=== PATIENT | male | born 1990 | race American Indian/Alaskan Native ===

== ENCOUNTER 2017-09-25 08:10 | Day surgery (SDC) | payer BC, OTHER ==
[~2017-09-25 08:10] MED LIST: Acetaminophen/HYDROcodone 325-10 MG Tab PO PRN; Ketorolac 10 MG Tab PO PRN; Lactated Ringers 1,000 ML IV SCH; Lidocaine 2% 5 ML SDV ONE; Midazolam 1 MG/ML 2 ML SDV ONE; Ondansetron 4 MG/2 ML SDV ONE; Propofol 200 MG/20 ML SDV ONE; ceFAZolin 2 GM in Premix Bag 1 BAG IV SCH; fentaNYL 250 MCG/5 ML SDV ONE
[2017-09-25] MEDS ORDERED: Acetaminophen 1,000 MG in Premix Bag 1 BAG IV SCH (10:00)
--- NOTE | 2017-09-25 10:18 | PCM.PREANE ---
Preanesthetic Assessment - Anesthesia/Transfusion/Family Hx Anesthesia History: Prior Anesthesia Without Reaction Family History of Anesthesia Reaction: No Transfusion History: No Prior Transfusion(s) - Review of Systems General: No Symptoms Pulmonary: No Symptoms Cardiovascular: No Symptoms Gastrointestinal: No Symptoms Neurological: No Symptoms Other: Reports: None - Physical Assessment NPO Status Date: 09/24/17 Height: 1.7 m Weight: 99.79 kg ASA Class: 1 Mental Status: Alert & Oriented x3 Airway Class: Mallampati = 1 Dentition: Reports: Normal Dentition ROM/Head Extension: Full Lungs: Clear to Auscultation, Normal Respiratory Effort Cardiovascular: Regular Rate, Regular Rhythm - Allergies Allergies/Adverse Reactions: Allergies Allergy/AdvReac Type Severity Reaction Status Date / Time No Known Allergies Allergy Verified 09/20/17 10:29 - Acknowledgements Anesthesia Type Planned: General Anesthesia Pt an Appropriate Candidate for the Planned Anesthesia: Yes Alternatives and Risks of Anesthesia Discussed w Pt/Guardian: Yes Pt/Guardian Understands and Agrees with Anesthesia Plan: Yes PreAnesthesia Questionnaire HEENT History: Reports: Other (See Below) Other HEENT History: wears glasses Neurological History: Reports: Concussion, Migraines, Seizure Other Neuro History: "had seizure following concussion" Endocrine/Metabolic History: Reports: Obesity/BMI 30+ - Past Surgical History Head Surgeries/Procedures: Reports: None Musculoskeletal Surgical History: Reports: Other (See Below) Other Musculoskeletal Surgeries/Procedures:: hx foot surgery - SUBSTANCE USE Smoking Status *Q: Never Smoker Recreational Drug Use History: No - HOME MEDS Home Medications: Home Meds Ibuprofen 800 mg PO ASDIRECTED PRN 09/20/17 [History] - CURRENT (IN HOUSE) MEDS Current Meds: Current Medications Hydrocodone Bitart/Acetaminophen ([place] 325-10 Mg) 1 - 2 tab PO Q4H PRN PRN Reason: Pain Fentanyl (Sublimaze) 50 mcg IVPUSH .Q5MIN PRN PRN Reason: Pain Cefazolin Sodium/Dextrose 2 gm (/ Premix) 50 mls @ 100 mls/hr IV ONCALL ROSIE Lactated Ringer's (Ringers, Lactated) 1,000 mls @ 100 mls/hr IV ASDIRECTED [facility] Last Admin: 09/25/17 09:51 Dose: 100 mls/hr Acetaminophen 1,000 mg/ Premix 100 mls @ 400 mls/hr IV .ONETIME ROSIE Last Admin: 09/25/17 09:50 Dose: 400 mls/hr Ketorolac Tromethamine (Toradol) 10 mg PO Q6H PRN PRN Reason: Pain Stop: 09/30/17 08:01 Discontinued Medications Fentanyl (Sublimaze) Confirm Administered Dose 250 mcg .ROUTE .STK-MED ONE Stop: 09/25/17 07:21 Lidocaine (Xylocaine-Mpf 2%) Confirm Administered Dose 5 ml .ROUTE .STK-MED ONE Stop: 09/25/17 07:21 Midazolam HCl (Versed 1 Mg/Ml) Confirm Administered Dose 2 mg .ROUTE .STK-MED ONE Stop: 09/25/17 07:21 Ondansetron HCl (Zofran) Confirm Administered Dose 4 mg .ROUTE .STK-MED ONE Stop: 09/25/17 07:21 Propofol (Diprivan 20 Ml) Confirm Administered Dose 200 mg .ROUTE .STK-MED ONE Stop: 09/25/17 07:21
[2017-09-25] MEDS ORDERED: Bupivacaine 0.25% 10 ML SDV ONE (10:24)
[2017-09-25] MEDS ORDERED: HYDROmorphone 2 MG/ML Syringe ONE (11:04)
[2017-09-25] MEDS ORDERED: Ketorolac 30 MG/ML SDV ONE (11:13)
[2017-09-25] MEDS ORDERED: fentaNYL 250 MCG/5 ML SDV ONE (11:43)
[2017-09-25] MEDS ORDERED: Dexamethasone 4 MG/ML 5 ML MDV ONE (11:56)
--- NOTE | 2017-09-25 12:30 | PCM.OPNOTE ---
- General Post-Op/Procedure Note Date of Surgery/Procedure: 09/25/17 Operative Procedure(s): L knee scope with PLM/PMM, excision of loose body, and ACL reconstruction with allograft Post-Op Diagnosis: L knee ACL, med/lat meniscus tear, loose body Anesthesia Technique: General ET Tube Primary Surgeon: Marianna Doty Government Affairs Director: Yancy Schreiber in mLs: 10 Condition: Good Free Text/Narrative:: tt=[id number] min #[id number]
[2017-09-25] MEDS: fentaNYL 100 MCG/2 ML SDV IVPUSH PRN ×4 (12:45→13:02)
--- NOTE | 2017-09-25 13:09 | PCM.POSTAN ---
POST ANESTHESIA ASSESSMENT - MENTAL STATUS Mental Status: Alert, Oriented - RESPIRATORY Respiratory Status: Respiratory Rate WNL, Airway Patent, O2 Saturation Stable - CARDIOVASCULAR CV Status: Pulse Rate WNL, Blood Pressure Stable - GASTROINTESTINAL GI Status: No Symptoms - POST OP HYDRATION Hydration Status: Adequate & Stable
[2017-09-25] MEDS: HYDROmorphone 2 MG/ML Syringe IVPUSH ONE ×2 (13:12→13:18)
[2017-09-25] MEDS ORDERED: diphenhydrAMINE 50 MG/ML SDV IVPUSH PRN (13:55)
[2017-09-25] MEDS ORDERED: Promethazine 25 MG Supp RECTAL PRN (13:57)
--- NOTE | 2017-09-25 14:32 | OR ---
SURGEON: Marianna Doty MD DATE OF PROCEDURE: 09/25/2017 PREOPERATIVE DIAGNOSES: 1. Left knee anterior cruciate ligament tear. 2. Left knee medial and lateral meniscus tear. 3. Left knee osteochondral defect, lateral tibial plateau. POSTOPERATIVE DIAGNOSES: 1. Left knee anterior cruciate ligament tear. 2. Left knee medial and lateral meniscus tear. 3. Osteochondral left lateral tibial plateau with loose body. PROCEDURE: Left knee arthroscopy with: 1. Partial medial and lateral meniscectomies. 2. Excision of loose body (10 mm x 15 mm). 3. Arthroscopically aided anterior cruciate ligament reconstruction using allograft. PRODUCTION ESTIMATOR: Yancy Schreiber PA-C. ANESTHESIA: General. ESTIMATED BLOOD LOSS: 10 mL. TOURNIQUET TIME: 59 minutes. COMPLICATIONS: None. DVT PROPHYLAXIS: PAS boot to the nonoperative leg. IMPLANTS USED: An Ar[employer]rex TightRope ACL fixation system. BRIEF HISTORY: Massimo is a 26-year-old male who sustained a tear of his ACL. MRI also showed tears of the medial and lateral meniscus including an osteochondral defect of the lateral tibial plateau. Due to his lack of response to conservative treatment, I did recommend surgical intervention. Risks and goals of the procedure were discussed with the patient and were documented preoperatively. He agreed to proceed. DESCRIPTION OF PROCEDURE: The patient was properly identified and brought to the operating room. He was transferred from the OR cart and placed on the operating room table in supine position. General anesthesia was administered. After adequate anesthesia was obtained, a well-padded tourniquet was applied to the left lower extremity. The left lower extremity was then prepped in standard fashion using ChloraPrep solution. It was then sterilely draped. A time-out was performed to ensure correct site and procedure. Preoperative antibiotics were given. The surgical site had been marked preoperatively. An Esmarch was used to exsanguinate the left lower extremity and the tourniquet was inflated to 250 mmHg. A lateral portal arthrotomy was established. Blunt trocar and cannula were introduced into the suprapatellar pouch. Camera, inflow, and outflow were assembled. The suprapatellar pouch showed no signs of synovitis. The patellofemoral joint was then inspected. No significant degenerative changes were noted. The patella appeared to track centrally. I then extended down the lateral and medial gutter. No loose bodies were identified. I then entered the medial compartment. A medial portal arthrotomy was established. A blunt probe was inserted. He was found to have a radial tear of the posterior horn of the medial meniscus. Using a combination of biters and shaver, this was resected back to a stable remnant. The meniscus was again probed and found to be intact. 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 I then entered the notch. A portion of the ACL was identified, which appeared to be scarred to the PCL. A portion of the ACL was also detached from the femoral insertion. The lateral femoral condyle was devoid of any ACL attachment. PCL appeared intact. I then entered the lateral compartment. He did have a horizontal split of the posterior horn of the lateral meniscus. The undersurface appeared to be somewhat unstable. Using a combination of biters and shaver, this was resected to a stable remnant. The posterior medial aspect of the lateral tibial plateau was then inspected. There was a large loose body, which was not attached to the underlying bone. This was removed in one piece. It was measured to be approximately 10 mm x 15 mm. The donor site was inspected. This was full thickness down to the subchondral bone; however, it was in a very posterior medial aspect of the lateral tibial plateau. The remainder of the cartilage within the lateral compartment showed diffuse grade 1 to grade 2 changes. The meniscus was again probed and the remainder of the meniscus was found to be stable. I then turned my attention back to the notch. The allograft was prepared on the back table in the usual fashion. The lateral femoral condyle wall was cleared of soft tissue. A curette was used to remove the soft tissue posteriorly to make sure the posterior aspect of the lateral femoral condyle was adequately visualized. I did use a 5.0 mm sloan to perform a notchplasty for better visualization as well. The ACL insertion point on the tibia was also cleared of its soft tissue. The tibial guide was then placed. This was placed just medial to the insertion of the lateral meniscus and approximately 7 cm anterior to the PCL. An incision was made over the medial aspect of the tibia and the subcutaneous tissues were dissected down. The periosteum was elevated. A guide pin was then passed and was felt to be in adequate position. The graft did measure 9 mm and a 9 mm reamer was then used. A rasp was used to rasp the posterior edge of the tunnel. The shaver was also introduced into the knee joint to remove any bony remnants and shavings. A corkscrew cannula was then placed to aid in water retention. We then turned our attention to the femur. The femoral guide was placed in a posterior and inferior position on the femoral condyle. An incision was made over the lateral aspect of the tibia and the subcutaneous tissues were spread along with the iliotibial band. The cannula was malleted into place. The guide pin was then placed. The guide pin was then drilled through into the intra- articular portion. The guide was removed and the position of the pin was inspected. It was felt to be in acceptable position. The FlipCutter was then deployed and a 30 mm femoral tunnel was created. The FlipCutter was then removed and a suture passer was then placed. This was then pulled through the tibial tunnel as well. The cannulas were then removed. The graft was then passed into the tibial tunnel, up through the femoral tunnel. The EndoButton was deployed and C-arm imaging was used to confirm adequate deployment on the lateral edge of the distal femur. The graft was then passed approximately 25 mm into the femur. The tibia was then checked and it was felt that the graft position was appropriate there as well as the markings were just barely visible indicating that there was adequate length of the graft in the tibial tunnel. Camera was then removed from the knee. The knee was brought into full extension. The TightRope button was then assembled to the suture. The knee was then held in an extended position as the suture was tightened with the TightRope fixation. The button was able to be brought flush to the bone with good fixation. The suture ends were then tied over this. A Héctor exam was performed, which showed good stability of the graft. The camera was then reintroduced into the knee. The position of the graft was inspected. It was felt to be in good position. It was probed and found to be stable. The knee was taken through a range of motion. I was able to get to 90 degrees. There did not appear to be any impingement on the PCL or the notch. Instruments were then removed from the knee. The tourniquet was deflated. A 2- 0 Vicryl was used to close the soft tissue overlying the tibial button. Subcutaneous tissues were also closed with 2-0 Vicryl and the skin was closed with a running 4-0 Monocryl suture. Portal sites were closed with 3-0 nylon. Steri-Strips and Benzoin were placed over the proximal tibial incision. Xeroform gauze was placed over the wound and a bulky dressing was applied. He was placed into a hinged knee brace locked in full extension. He was awakened from his anesthetic and transferred back to the operating room cart. He was brought to recovery room in stable condition. All needle and sponge counts were correct. GEORGE / MALATHI /[id number]
--- NOTE | 2017-09-25 16:45 | CR ---
EXAMINATION: Left knee HISTORY: ACL repair COMPARISON: 10/08/2016 TECHNIQUE: Single view FINDINGS/IMPRESSION: Operative control films demonstrates a metal clip projecting over the lateral fe moral condyle.
== END 2017-09-25 15:25 | disposition home or self-care (01) ==
LOC: MW.SDS 08:10
PROVIDERS: ATTEND Orthopaedic Surgery
DX: S83.512A Sprain of anterior cruciate ligament of left knee, initial encounter (principal); S83.282A Other tear of lateral meniscus, current injury, left knee, initial encounter; S83.242A Other tear of medial meniscus, current injury, left knee, initial encounter; M95.8 Other specified acquired deformities of musculoskeletal system; E66.9 Obesity, unspecified; X58.XXXA Exposure to other specified factors, initial encounter; Z68.34 Body mass index [BMI] 34.0-34.9, adult
CPT/HCPCS: 29880; 29888; 76000; A9270; J1100; J1170; J1200; J1885; J2250; J2405; J3010; J7120; 01402; C1762; C1776; J2704